=== PATIENT | female | born 1940 | race Caucasian/White ===

== ENCOUNTER 2017-01-23 15:21 | Observation (INO) | payer MEDICARE, OTHER ==
[~2017-01-23] VITALS: Ht 165.1 cm; Wt 78.0 kg
[2017-01-23] VITALS (7 sets, daily range): BP systolic 156–198; BP diastolic 92–109; PULSE 71–91; RESP 12–20; O2SAT 95–98
[~2017-01-23 15:21] MED LIST: HYDR25TA4 PO; NO ACTIVE MEDS
--- NOTE | 2017-01-23 16:34 | ED.REPORT ---
HPI-Neurologic Deficit Date of Service Jan 23, 2017 ED Provider: Aracely Maradiaga MD A 76 year old female with a medical history including Takotsubo cardiomyopathy, hypertension, asthma, and retinal thrombosis presents to the ED with expressive aphasia described as "difficulty word-finding" onset 1200 this afternoon. Associated symptoms include malaise, dizziness, and headache. The patient also experienced an episode of epistaxis upon awakening this morning, which has since resolved. She denies weakness, numbness, vision change, problem walking, shortness of breath, cough, loss of appetite, or other symptoms. The patient's last known normal is 1100 this morning while headed to work. She received distressing news about a close friend today, after the onset of her symptoms. Her symptoms have mostly resolved in the ED. Nursing Notes Stated Complaint: DIZZY, MEMORY PROBLEMS Chief Complaint: Neuro Symptoms/ Deficits Nursing Notes Reviewed: Yes Allergies: Coded Allergies: Shellfish (Verified Allergy, Severe, Anaphylaxis, 01/23/17) esomeprazole (Verified Allergy, Severe, 01/23/17) latex (Verified Allergy, Severe, Hives, 01/23/17) omeprazole (Verified Allergy, Severe, 01/23/17) pantoprazole (Verified Allergy, Severe, HIVES, 01/23/17) CONSTANCE Inhibitors (Verified Allergy, Unknown, 01/23/17) Penicillins (Verified Allergy, Unknown, 01/23/17) Tetracyclines (Verified Allergy, Unknown, 01/23/17) amoxicillin (Verified Allergy, Unknown, 01/23/17) ciprofloxacin (Verified Allergy, Unknown, 01/23/17) ranitidine (Verified Allergy, Unknown, 01/23/17) Quinolones (Verified Adverse Reaction, Unknown, 01/23/17) iodine (Verified Adverse Reaction, Unknown, 01/23/17) Uncoded Allergies: CEPHALOSPORIN (Adverse Reaction, Unknown, UNK - RECEIVED CEFTRIAXONE IN ED , 09/08/09) Scheduled Hydrochlorothiazide (Hydrochlorothiazide) 25 Mg Tablet 25 MG PO DAILY General Time Seen by Provider: 16:34 Chief Complaint Other (Expressive aphasia) Hx Obtained From: Patient Arrived By: Walk-in Sudden in Onset?: Yes Onset Occurred: 5 - 8 hours ago Symptom Duration: 5 - 8 hours Progression Since Onset: Gradually improving Location: : Head Quality: Painful Severity: Current: Moderate Severity: Maximum: Moderate Associated with: Reports: Headache, Denies: Fever, Visual disturbance, Weakness Related History: Reports: Hypertension Immunizations: Unknown Recent Healthcare: No recent doctor visit Risk Factors NIH Stroke Scale Level of Consciousness: Alert and responsive (0) Ask Month & Age: Both questions right (0) Horizontal EO Movements: None (0) Facial Palsy: Normal symmetry (0) Right Arm Motor Drift (10s): No drift 10 sec (0) Left Arm Motor Drift (10s): No drift 10 sec (0) Right Leg Motor Drift (5s): No drift 5 sec (0) Left Leg Motor Drift (5s): No drift 5 sec (0) Limb Ataxia FNF/Heel-Malcolm: No ataxia (0) Sensation (Arms/Legs/Face): No sensory loss (0) Language Aphasia: No aphasia, normal (0) Dysarthria: No dysarthria, normal (0) Extinction/Inattention: No exctinct/inattent (0) NIHSS Score: 0 Time NIHSS Performed: 16:48 Date NIHSS Performed: Jan 23, 2017 Past Medical History Past Medical History Gastritis H. Pylori Staph infection in foot in 2000 Retinal Thrombosis Takotsubo cardiomyopathy (2016) Reports: Asthma, Hypertension Past Surgical History Right knee tendon repair Family History Heart attack in brother Smoking History Never Smoker Social History Alcohol Use: 1-3 per week Drug Use: Denies drug use Other Social History: Good social support, Local resident Ambulatory Status Independent Review of Systems Review of Systems Note: + Expressive aphasia - Loss of appetite Constitutional: Reports: Malaise, Denies: Fever Respiratory: Denies: Non-productive cough, Shortness of breath GI: Denies: Diarrhea, Vomiting Neurologic: Reports: Dizziness, Headache, Denies: Numbness, Problem walking, Vision change, Weakness Complete sys rev & neg: except as marked. Ears / Nose / Throat: Reports: Nose bleeding Physical Exam Initial Vital Signs Vital Signs (First) Date Time Temp Pulse Resp B/P Pulse Ox O2 Delivery O2 Flow Rate FiO2 01/23/17 15:31 36.2 91 16 174/107 97 Room Air Initial VS: Reviewed, Vital signs abnormal ENT: Conjunctiva normal, No scleral icterus Neck: Supple, Full range of motion Skin: Warm, Dry, No cyanosis Psychiatric: Mood/affect normal, Behavior normal, Normal thought content General/Constitutional: Awake, Alert, No acute distress Head / Eyes: Atraumatic, Normocephalic, PERRL, EOMI, No nystagmus Respiratory / Chest: Breath sounds NL, Breath sounds = bilat, No respiratory distress Cardiovascular: Heart rate NL, Regular rhythm, Heart sounds NL, No murmurs, No rubs Neurologic: Oriented X3, Speech NL, No motor deficits, No sensory deficits Interpretation & Diagnostics URINE DRUG SCREEN: Negative URINE DIPSTICK: 1.010 sp gravity 7 pH Trace Leukocyte Esterase Normal Glucose Normal Urobilinogen Otherwise Negative Lab Results Interpretation Result Diagram: 01/23/17 1656 01/23/17 1656 Test 01/23/17 16:56 01/23/17 17:20 White Blood Count 9.0th/mm3 (3.8-10.1) Red Blood Count 5.19mil/mm3 (3.90-5.20) Hemoglobin 15.2g/dL (12.0-15.6) Hematocrit 45.3% (35.0-46.0) Mean Corpuscular Volume 87.3fL (81-100) Mean Corpuscular Hemoglobin 29.3pg (27.0-35.0) Mean Corpuscular Hemoglobin Concent 33.6% (32.0-37.0) Red Cell Distribution Width 13.8% (12.3-15.4) Platelet Count 236bil/L (150-400) Neutrophils (%) (Auto) 70.7% (40-74) Lymphocytes (%) (Auto) 22.2% (14-46) Monocytes (%) (Auto) 5.4% (4-12) Eosinophils (%) (Auto) 1.2% (0-5) Basophils (%) (Auto) 0.4% (0-3) Sodium Level 140mEq/L (134-144) Potassium Level 3.3mEq/L (3.5-5.2) Chloride Level 100mEq/L (97-108) Carbon Dioxide Level 25mmol/L (18-29) Blood Urea Nitrogen 11mg/dL (8-27) Creatinine 0.47mg/dL (0.57-1.00) Estimat Glomerular Filtration Rate 186mL/min (>59) Glucose Level 94mg/dL (60-99) Calcium Level 10.2mg/dL (8.5-10.1) Total Bilirubin 0.6mg/dL (0.0-1.2) Aspartate Amino Transf (AST/SGOT) 25U/L (0-50) Alanine Aminotransferase (ALT/SGPT) 27U/L (0-32) Alkaline Phosphatase 57U/L (25-165) Total Protein 7.2g/dL (6.4-8.4) Albumin 4.5g/dL (3.4-5.0) Urine Color Yellow (YELLOW) Urine Appearance Hazy (CLEAR,HAZY) Urine pH 6.0 (5.0-8.0) Urine Specific [place] 1.010 (1.003-1.035) Urine Protein Negativemg/dL (NEG,TRACE) Urine Glucose (UA) Negativemg/dL (NEGATIVE) Urine Ketones Negativemg/dL (NEGATIVE) Urine Occult Blood Trace (NEGATIVE) Urine Nitrite Negative (NEGATIVE) Urine Bilirubin Negative (NEGATIVE) Urine Urobilinogen Normalmg/dL (NORMAL) Urine Leukocyte Esterase Small (NEGATIVE) Urine RBC 0-2/hpf (0-2) Urine WBC 6-10/hpf (0-5) Urine Epithelial Cells Occasional/hpf (NONE-MOD) Urine Crystals None seen (NONE SEEN) Urine Bacteria Few/hpf (NONE-FEW) Urine Hyaline Casts None/lpf (NONE) Urine Granular Casts None seen (NONE SEEN) Urine Waxy Casts None seen (NONE SEEN) Urine Red Blood Cell Casts None seen (NONE SEEN) Urine White Blood Cell Casts None seen (NONE SEEN) Urine Mucus None seen (None Seen) Urine Trichomonas None seen (NONE SEEN) Urine Yeast None (NONE SEEN) Urinalysis Comment None Urine Culture Reflexed Indicated ECG Interpretation ECG Interpretation: Sinus rhythm rate 83 Normal intervals Normal axis No acute ST or T-wave changes Time: 16:42 Interpreted by: ED physician CT Head Interpretation IMPRESSION: 1. No acute intracranial process. 2. Moderate atrophy and chronic microvascular ischemic changes. Dictated by: Sarah Butcher M.D. on 01/23/2017 at 17:16 Study: Head CT no contrast Interpretation / Wet Read by: Interpret - Radiologist Re-Eval/Medical Decision Med Decision/Clinical Course The patient presents with neurologic symptoms which are resolved. They seem consistent with a TIA especially given the patient's persistent hypertension. Other considerations were electrolyte abnormality and dysrhythmia. Source of Hx: Old records Re-Evaluation/Progress #1: Time of Eval: 16:55 Patient Status: Condition improved Re-Evaluation/Progress Note: Patient rechecked. Allergies discussed. Re-Evaluation/Progress #2: Time of Eval: 18:37 )( Re-Eval Neurologic Exam: Alert Patient Status: Condition improved Re-Evaluation/Progress Note: Patient began to feel lightheaded after medication was administered, but her other symptoms have resolved at this time. Discussed with patient labs and CT results, diagnosis, and plan for admit. Patient agrees with plan for care and all questions were addressed. 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 I, Dr. Maradiaga, personally performed the history, physical exam, and medical decision-making; I reviewed and confirmed the accuracy of the information in the transcribed note. Signed by: Margaret Izquierdo, 01/23/2017, 21:30 copies to: Thao Aldridge MD, Jena M MD Jan 23, 2017 16:34 ISABEL ELDER Jan 23, 2017 16:46
[2017-01-23] MEDS ORDERED: Labetalol 5 mg/mL 4 mL Inj IVPUSH ONE (16:50)
[2017-01-23] MEDS ORDERED: hydrALAZINE 20 mg/mL Inj IV ONE (17:00)
[2017-01-23 17:05] LABS: BASOPHILS % (AUTO) 0.4 % (0-3); EOSINOPHILS % (AUTO) 1.2 % (0-5); MONOCYTES % (AUTO) 5.4 % (4-12); Mean Corpuscular Hemoglobin 29.3 pg (27.0-35.0); Mean Corpuscular Volume 87.3 fL (81-100); NEUTROPHILS % (AUTO) 70.7 % (40-74); Platelet Count 236 bil/L (150-400)
--- NOTE | 2017-01-23 17:19 | DRSVH ---
PROCEDURE: CT BRAIN WITHOUT CONTRAST ([id number]) INDICATIONS: neuro sx TECHNIQUE: Noncontrast 4.5 mm thick angled axial sections acquired from the foramen magnum to the vertex, with c oronal reformats. COMPARISON: [facility], CT, BRAIN W/O CONTRAST, 11/19/2009, 12:36. FINDINGS: Image quality: Excellent. CSF spaces: Basal cisterns are patent. No extra-axial fluid collections. The ventricles are symmet butch in size and shape. Brain: No intracranial bleeds or masses. There is cerebral volume loss for age, with resultant vent ricular and sulcal prominence. There are periventricular and deep white matter chronic small vessel ischemic changes. There is intracranial internal carotid artery atherosclerosis. Skull and face: Calvarium and visualized facial bones appear intact, without suspicious lesions. Sinuses: Visualized sinuses demonstrate hastings sinus minimal to mild mucosal thickening. IMPRESSION: 1. No acute intracranial process. 2. Moderate atrophy and chronic microvascular ischemic changes. Dictated by: Sarah Butcher M.D. on 01/23/2017 at 17:16 Approved by: Sarah Butcher M.D. on 01/23/2017 at 17:17
[2017-01-23 17:35] LABS: APPEARANCE,URINE HAZY (CLEAR,HAZY); COLOR,URINE YELLOW (YELLOW); OCCULT BLOOD,URINE TRACE (NEGATIVE); UROBILINOGEN,URINE NORMAL (NORMAL)
[2017-01-23] MEDS ORDERED: Potassium Chloride 20 mEq SR Tablet PO ONE (18:05)
[2017-01-23] MEDS ORDERED: HYDR25TA4 PO (19:37)
[2017-01-23] MEDS ORDERED: Polyethylene Glycol (PEG) 17 Gm Powder PO PRN (19:40)
[2017-01-23] MEDS ORDERED: Alum-Mag Hydrox-Simeth 30 mL Suspension PO PRN (19:40)
[2017-01-23] MEDS ORDERED: Ondansetron 2 mg/mL 2 mL Inj IV PRN (19:40)
--- NOTE | 2017-01-23 23:09 | PCM.HPMED ---
Subjective Date of Service Jan 23, 2017 Primary Provider: Admitting Physician: Marcella Stevens DO Primary Care Physician: Thao Aldridge MD Attending Physician: Marcella Stevens DO Admit Status: From the Emergency Department Chief Complaint: Expressive aphasia, dizziness History of Present Illness: 76-year-old female with past medical history including hypertension, Takotsubo cardiomyopathy, retinal thrombosis, and asthma presented to the emergency department with difficulty finding words at work on the day of admission followed by lightheadedness, and generally feeling unwell. She arrived to work at 11 AM after dropping her grandson off at school. 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 She was aware that she was doing it. She received news that the daughter if someone close to her had due to alcohol abuse overnight. She was thinking her symptoms might be related to this however her lightheadedness persisted and she felt like her blood pressure may be elevated. She reports feeling a little headachy during the time of exam however this was not a prominent symptom earlier in the day. She has been having some visual changes and is being treated for retinal thrombosis with Avastin intravitreal eye injections every 8 weeks. She was seen recently and there was concern for bleeding since her last injection and they are planning to increase the frequency of her injections. She has had no chest pain or shortness of breath, nausea, vomiting, constipation, or diarrhea. She does report a sore left ankle with occasional swelling around the joint that is chronic. Patient has her adult daughter and 8-year-old grandson living with her. As much as she enjoys spending time with her grandson she finds this situation stressful and has asked for them to find a new place to live over a year ago In the emergency department symptoms had mostly resolved, and age stroke scale 0 , potassium 3.3 with oral replacement of 20 mEq. EKG unremarkable, CT head showed no acute intracranial process. Review of Systems: A comprehensive review of systems was conducted with the patient and found to be negative except as above in the History of Present Illness. Allergies Coded Allergies: Shellfish (Verified Allergy, Severe, Anaphylaxis, 01/23/17) esomeprazole (Verified Allergy, Severe, 01/23/17) latex (Verified Allergy, Severe, Hives, 01/23/17) omeprazole (Verified Allergy, Severe, 01/23/17) pantoprazole (Verified Allergy, Severe, HIVES, 01/23/17) CONSTANCE Inhibitors (Verified Allergy, Unknown, 01/23/17) Penicillins (Verified Allergy, Unknown, 01/23/17) Tetracyclines (Verified Allergy, Unknown, 01/23/17) amoxicillin (Verified Allergy, Unknown, 01/23/17) ciprofloxacin (Verified Allergy, Unknown, 01/23/17) ranitidine (Verified Allergy, Unknown, 01/23/17) Quinolones (Verified Adverse Reaction, Unknown, 01/23/17) iodine (Verified Adverse Reaction, Unknown, 01/23/17) Uncoded Allergies: CEPHALOSPORIN (Adverse Reaction, Unknown, UNK - RECEIVED CEFTRIAXONE IN ED , 09/08/09) Home Medications Hydrochlorothiazide 25 mg by mouth daily PMH Takotsubo cardiomyopathy 2016 Hypertension Retinal vein thrombosis Asthma Gastritis H. pylori infection with esophageal ulcer perforation Staph infection in the foot in 2000 Surgical History EGD with cauterization of perforated ulcer by Dr. 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 External ears without defect. Pupils equal, round, and reactive to light and accommodation. Anicteric sclerae, moist conjunctivae, and no lid lag. Oropharynx free of erythema and cobble stoning with moist mucosa. Neck: Supple with full range of motion. No jugular venous distension. No bruits. No lymphadenopathy or thyromegaly. Cardiovascular: Regular rate and rhythm with no murmurs, rubs, or gallops appreciated Pulmonary: Left lower lobe deep wheezes, otherwise clear to auscultation bilaterally with no crackles, wheezes, or rhonchi. Normal respiratory effort with no use of accessory muscles. Abdomen: Bowel tones present. Soft, nontender, nondistended. No hepatosplenomegaly or masses appreciated. Extremities: No clubbing, cyanosis, edema, or lymphadenopathy appreciated. Skin: Normal temperature, turgor, and texture; no rash, ulcers, or subcutaneous nodules appreciated. Neurological: Cranial nerves grossly intact. Normal muscle strength, tone, and bulk. No known gait impairment. Psychiatric: Normal mood and affect. Alert and oriented to person, place, and time. Lab and Diagnostics Result Diagram: 01/23/176 01/23/171655 X-Rays, CTs and MRIs PROCEDURE: CT BRAIN WITHOUT CONTRAST ([id number]) IMPRESSION: 1. No acute intracranial process. 2. Moderate atrophy and chronic microvascular ischemic changes. Dictated by: Sarah Butcher M.D. on 01/23/2017 at 17:16 12-lead ECG ECG Interpretation: Sinus rhythm rate 83 Normal intervals Normal axis No acute ST or T-wave changes Time: 16:42 Interpreted by: ED physician Assessment & Plan 76-year-old female with past medical history including hypertension, Takotsubo cardiomyopathy, retinal thrombosis, and asthma presented to the emergency department with difficulty finding words at work on the day of admission followed by lightheadedness, and generally feeling unwell. 1. Probable transient ischemic attack, present on admission, acute - Patient had expressive aphasia accompanied with dizziness and lightheadedness , last known normal 11 AM 01/23/2017 - ABCD2 score predicts moderate risk of stroke 4.1 % 2 day stroke risk and 9.8% 90 day stroke risk - CT head shows no acute intracranial process - Nothing by mouth until swallow eval complete, Swallowing evaluation ordered - Echocardiogram ordered - Hemoglobin A1c, fasting lipid profile ordered - Medical management with aspirin, atorvastatin - MR stroke protocol ordered for the morning - Nursing stroke education - Monitor patient on telemetry 2. Hypertension, present on admission, acute on chronic - Blood pressure measured to be as high as 192/101 - Treated with IV hydralazine 10 mg in the emergency department. - Patient takes 25 mg hydrochlorothiazide by mouth daily. - Patient reports fatigue and her blood pressure at work over the last 2 days with readings 152/84 and 141/74. - She will likely need additional hypertensive therapy however I will defer to day team for this as we will wait to initiate antihypertensive therapy until after her vascular imaging is complete to allow for permissive htn. 3. Hypokalemia, present on admission, active - Potassium repleted with 20 mEq oral potassium chloride - Recheck BMP in the morning 4. Stressful social situation, present on admission, chronic - Patient's daughter and 8-year-old grandson have been living with her for the last 8 years. Though she greatly enjoys spending time with her grandson and helping her daughter it has become stressful. - Patient has asked daughter to find a new living situation multiple times to no avail. Description of the situation kept coming up during our discussion. - Recommend outpatient follow-up with possible referral to counseling as patient may be experiencing some internal conflict over this situation. Acetaminophen for mild pain when necessary. Bowel regimen Senna and MiraLAX PRN. Zofran when necessary for nausea and vomiting. DVT prophylaxis with sub cutaneous heparin Patient was admitted under inpatient status with expected length of stay greater than 2 midnights due to severity of presenting symptoms, risk of adverse event, and complexity of treatment plan. Pain Evaluation: Adequate Pain Control GI Prophylaxis: Not indicated VTE Prophylaxis: Sub-Q Heparin (Unfractionated) VTE Mechanical Devices: Intermittant Pneumatic CD Resuscitation Status: CPR: Attempt Resuscitation Attending Statement //The patient was seen and examined together with house staff on 01/23/2017 and I agree with the history, exam and plan as outlined in the note above. copies to: Thao Aldridge MD, Erika R DO Jan 23, 2017 23:09 Marcella Stevens DO Jan 24, 2017 05:51
[2017-01-24 05:04] VITALS: BP 128/74; PULSE 65; RESP 18; O2SAT 95
--- NOTE | 2017-01-24 05:41 | NUR ---
Admit/Neurochecks Admitted pt from ED, suspected of possible TIA. Neuro vitals done. Pt is AOx4, noted no word searching or slurring of speech. PERRLA, and no altered gaze. 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 Low extremities strength for age. Swallow screen done, currently on pureed honey thick until speech evaluates. CVA booklet given for health teaching. Denies chest pain, sob, n/v or abd discomfort. HTN noted upon arrival, MD is aware and no intervention at the moment. Hourly rounding done, telemetry noted no abnormal rhythm throughout the shift. Will continue to monitor.
[2017-01-24 05:46] VITALS: PULSE 62
[2017-01-24 06:09] LABS: BASOPHILS % (AUTO) 0.7 % (0-3); EOSINOPHILS % (AUTO) 3.2 % (0-5); MONOCYTES % (AUTO) 8.4 % (4-12); Mean Corpuscular Hemoglobin 29.3 pg (27.0-35.0); Mean Corpuscular Volume 88.4 fL (81-100); NEUTROPHILS % (AUTO) 55.8 % (40-74); Platelet Count 233 bil/L (150-400)
[2017-01-24] MEDS: Heparin 5,000 Unit/mL Inj SUBQ SCH ×2 (08:11→16:07)
[2017-01-24 08:44] VITALS: BP 153/98; PULSE 69; RESP 20; O2SAT 96
[2017-01-24 10:36] VITALS: PULSE 65
--- NOTE | 2017-01-24 11:14 | NUR ---
Evaluation completed. Please go to "Notes" then click on "Assessments and Notes" (bottom left corner of screen). Then select appropriate discipline tab on top of screen.
--- NOTE | 2017-01-24 11:46 | DRSVH ---
[facility] [address] [place] [address] Echocardiogram Report Name: JADEN AGUAYO JStudy Date: 01/24/2017 Height: 65 in Hospital Exam Location: [facility] Weight: 172 lb Gender: Female BSA: 1.9 m2 : 1940 Age: 76 yrs BP: 128/74 mmHg Reason For Study: TIA Ordering Physician: HOSPITALIST [facility] Performed By: Delvin Castillo Referring Physician: Thao Aldridge Interpretation Summary The left ventricle is normal in size. The ejection fraction is estimated to be 60-65%. There has been no significant change in LV EF since the previous study. The right ventricle is borderline dilated. The right ventricular systolic function is normal. There is mild tricuspid valve prolapse. There is mild tricuspid regurgitation. Compared to the prior echo exam, there has been a decrease in TR severity. The right ventricular systolic pressure is estimated at 20 mmHg assuming a right atrial pressure of 3 mm Hg. Procedure: A two-dimensional transthoracic echocardiogram with color flow and Doppler was performed. The study quality was technically adequate. Comparison is made with the echocardiogram of 01/13/16. The patient was in normal sinus rhythm during the exam. Left Ventricle: The left ventricle is normal in size. There is normal left ventricular wall thickness. There is no thrombus. The ejection fraction is estimated to be 60-65%. There has been no significant change since the previous study. There are no focal wall motion abnormalities. Spectral Doppler of the mitral valve is reversed, with an E/A wave ratio < 1.0. Right Ventricle: The right ventricle is borderline dilated. The right ventricular systolic function is normal. Atria: Both atria are normal in size. Both atria have remained unchanged in size since the prior echo exam. A prominent eustachian valve is noted. The interatrial septum is intact with no evidence for an atrial septal defect. Mitral Valve: The mitral valve leaflets appear thickened, but open well. There is trace mitral regurgitation. Aortic Valve: The aortic valve is trileaflet. The aortic valve opens well. The aortic valve is slightly calcified. No aortic regurgitation is present. Tricuspid Valve: There is mild tricuspid valve prolapse. There is mild tricuspid regurgitation. The right ventricular systolic pressure is estimated at 20 mmHg assuming a right atrial pressure of 3 mm Hg. Compared to the prior echo exam, there has been a decrease in TR severity. Pulmonic Valve: The pulmonic valve is not well seen, but is grossly normal. There is no pulmonic valvular regurgitation. Great Vessels: The aortic root is normal size. The ascending aorta is mildly enlarged. The pulmonary artery is normal size. The IVC is of normal diameter and collapses greater than 50% with a sniff. This suggests a low right atrial pressure of 3 mm Hg. Pericardium/ Pleura There is no pericardial effusion. There is no pleural effusion. MMode/2D Measurements & Calculations LVIDd: 4.7 cm RA long axis LVOT diam LVIDs: 2.9 cm LA A2 area: 13.3 cm FS: 36.8 % LA A4 area: 12.6 cm RA area Ao root diam EPSS: 0.60 cm LA length (vol): 5.0 cm IVSd: 0.88 cm LA vol: 28.6 ml : 12.2 cm asc Aorta LVPWd: 0.72 cm LA vol index RA vol: 27.8 mlDiam: 3.5 cm RA : 15.0 mm2 IVC diam: 1.0 cm LV florence. diameter/BSA LV sys. diameter/BSA (cm/m^2): 2.5 (cm/m^2): 1.6 Doppler Measurements & Calculations Ao V2 max MV E max tony MV E/A: 0.52 TR max tony: 203.2 cm/sec : 128.8 cm/sec : 47.8 cm/sec Med Peak E' Tony TR max P.5 mmHg Ao max PG MV A max tony PA V2 max: 72.2 cm/sec : 6.6 mmHg : 91.5 cm/sec E/E' med: 13.8 PA mean P.3 mmHg Ao mean PG Lat Peak E' Tony PA Accel Time: 0.14 sec : 4.2 mmHg E/E' lat: 7.3 E/e' average Pulm A Revs Dur MV A dur: 0.16 sec MV dec time Ao V2 mean PA V2 mean Pulm A Revs Dur - MV A : 0.33 sec : 99.3 cm/sec : 55.3 cm/sec Dur: -0.04 msec Ao V2 VTI PA pr(Accel) : 29.2 cm : 9.1 mmHg Reading Physician:LAURA
--- NOTE | 2017-01-24 11:59 | NUR ---
MRI/off floor pt is transported via W/C to MRI.
--- NOTE | 2017-01-24 13:00 | NUR ---
back on floor pt returns from MRI via W/C. denies pain/distress. Tele hooked back up and surgical scrub tech called.
[2017-01-24 13:34] VITALS: BP 148/78; PULSE 70; RESP 19; O2SAT 95
--- NOTE | 2017-01-24 14:26 | DRSVH ---
PROCEDURE: MRI STROKE PROTOCOL ([id number]) Pre- and post-contrast brain MRI, non-contrast brain MR angiogram, pre- and postcontrast neck MR marilu ogram INDICATIONS: Expressive aphasia TECHNIQUE: Brain: Noncontrast axial T1 spin echo, axial T2 fast spin echo, sagittal and axial FLAIR, coronal T2 fast spin echo, axial gradient echo, axial diffusion and ADC through the brain. After the administr ation of contrast, axial 3D VIBE of the cranial vasculature and brain. Brain MRA: Non-contrast 3-D time of flight MR angiogram, with multiple gijaijh-pzrrpiedi-bnvhxcxjvt (MIP) reformats performed. Neck MRA: Axial and sagittal TruFISP through the neck. Coronal dynamic MR angiogram during administ ration of contrast in the arterial and venous phases, with 3-dimenstional zwvmtop-rzrtffbxn-evdgzokif n (MIP) reformats constructed from subtraction images. COMPARISON: [facility], MR, STROKE PROTOCOL ([facility] 11/19/2009, 16:45. FINDINGS: Image quality: Excellent. BRAIN: CSF spaces: Ventricles are normal in size and shape. Basal cisterns are patent. No extra-axial flu id collections. Brain: No intracranial bleeds or mass effects. Almanzar-white matter interface is normal. Diffusion we ighted images show no acute ischemic insults. Brainstem appears normal. Normal intravascular flow v oids are present. No abnormal intracranial enhancement. Skull and face: Calvarial marrow signal is normal. Orbits appear normal. Sinuses: Sinuses demonstrate minimal hastings sinus mucosal thickening. Fluid is present in the right ma stoid air cells. Recommend correlation to mastoiditis. BRAIN MR ANGIOGRAM: Anterior circulation: Intracranial internal carotid arteries are normal in size and enhancement. Th e flow within the paired anterior cerebral arteries is normal and symmetric. The flow within the mid dle cerebral arteries is normal and symmetric. The anterior communicating artery is seen. No stenos es, occlusions, or aneurysms. Posterior circulation: The visualized portions of the vertebral arteries demonstrate normal caliber, and join to form a normal appearing basilar artery. The flow within the posterior cerebral arteries is normal and symmetric. No stenoses, occlusions, or aneurysms. NECK MR ANGIOGRAM: Carotids: Great vessels demonstrate a conventional anatomy as they arise from the aortic arch. The origins of the common carotid arteries appear patent. The calibers and courses of both common caroti d arteries are normal. The bifurcation regions appear normal bilaterally. The left internal carotid artery demonstrates normal course and caliber. There is an approximate 50% narrowing at the origin of the right internal carotid artery. Posterior circulation: The origins of the vertebral arteries appear patent. More superior portions of both vertebral arteries demonstrate normal course and caliber, and join to form a normal appearing basilar artery. Miscellaneous: Subclavian arteries appear patent. Pre-contrast images through the neck show no soft tissue abnormalities. IMPRESSION: 1. No acute intracranial process. No acute ischemia. 2. Moderate atrophy and chronic microvascular changes. 3. There are no areas of hemodynamically significant stenosis, occlusion or aneurysmal dilation of t he anterior circulation. 4. There are no areas of hemodynamically significant stenosis, occlusion or aneurysmal dilation of t he posterior circulation. 5. Approximate 50% stenosis of the right internal carotid artery. The estimate of stenosis included in the report of the imaging study was calculated using the NASCET method Dictated by: Sarah Butcher M.D. on 01/24/2017 at 14:09 Approved by: Sarah Butcher M.D. on 01/24/2017 at 14:25
--- NOTE | 2017-01-24 15:32 | PCM.DIMED ---
Discharge Instructions Date of Service Jan 24, 2017 Dates of Hospitalization Jan 23, 2017 at 19:45 Discharge Diagnosis Discharge Diagnosis 1. Likely Stress reaction vs less likely transient ischemic attack, 2. Hypertension 3. Hypokalemia - resolved 4. Social Stressors Medication Instructions Please continue taking your medications as previously instructed Diet Heart Healthy Call your provider Fever or Chills, Chest pain, Weakness (unilateral) Patient Instructions Please follow up with Dr. Aldridge within 1 week. Please discuss with her about your stress level and about any need for baby aspirin usage. Follow-up Provider: Thao Aldridge MD Follow-up with PCP in: 1 week Micah Gastelum DO Jan 24, 2017 15:32
--- NOTE | 2017-01-24 15:49 | NUR ---
Social Work-initial assessment/discharge: Data:See initial assessment. Pt is a 76 y/o female who was admitted on 01/23/17 for TIA per H&P. Pt's insurance is [employer] and PCP is hTao Aldridge MD. EMR Reviewed. Pt's readmission score is 3-high risk. SW met with pt to discuss discharge planning, SW role explained. Pt is alert and oriented x3. Pt resides at home with her daughter and grandson in a multi level home where she remains independent with ADls. Pt drives and does not use any DME. Pt has no HH or SNF history. Pt has no assistant terminal manager care or VA benefits. 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 SW discussed DPOA/ advanced directive, pt states she has never done this paperwork, SW provided her with a copy. PT and ST have both seen pt and cleared pt for home no needs. Pt is ready to discharge home today. Pt confirms her daughter will provide transport home. SW provided phone number and plan on white board in room. No anticipated discharge needs. All updated and agreeable to plan. Assessment:Pt who is independent at baseline. Plan:Pt to discharge home today via POV. No anticipated discharge needs. All updated and agreeable to plan. MADHURI Quintana Addendum: 01/24/17 at 1554 by RAAD GLEZ Amended: Links added.
--- NOTE | 2017-01-24 16:32 | NUR ---
discharge paperwork reviewed, no questions at this time. Belongings are bagged and pt carried them out. pt refused W/C ride and prefers to walk to private car to return to her private home.
--- NOTE | 2017-01-24 17:13 | PCM.DC.MED ---
Discharge Summary Date of Service Jan 24, 2017 Dates of Hospitalization Date of Hospital Admission Jan 23, 2017 at 19:45 Date of Discharge: Jan 24, 2017 Providers: Admitting Physician: Marcella Stevens DO Primary Care Physician: Thao Aldridge MD Attending Physician: Marcella Stevens DO Diagnosis at Time of Discharge Diagnosis at Time of Discharge 1. Likely Stress reaction vs possible transient ischemic attack, 2. Hypertension 3. Hypokalemia - resolved 4. Social Stressors Procedures XRay, CTs & MRIs PROCEDURE: CT BRAIN WITHOUT CONTRAST ([id number]) IMPRESSION: 1. No acute intracranial process. 2. Moderate atrophy and chronic microvascular ischemic changes. Dictated by: Sarah Butcher M.D. on 01/23/2017 at 17:16 ECG 12 Lead ECG Interpretation: Sinus rhythm rate 83 Normal intervals Normal axis No acute ST or T-wave changes Time: 16:42 Interpreted by: ED physician Cardiac Echo Impression Interpretation Summary The left ventricle is normal in size. The ejection fraction is estimated to be 60-65%. There has been no significant change in LV EF since the previous study. The right ventricle is borderline dilated. The right ventricular systolic function is normal. There is mild tricuspid valve prolapse. There is mild tricuspid regurgitation. Compared to the prior echo exam, there has been a decrease in TR severity. The right ventricular systolic pressure is estimated at 20 mmHg assuming a right atrial pressure of 3 mm Hg. Brief History 76-year-old female with past medical history including hypertension, Takotsubo cardiomyopathy, retinal thrombosis, and asthma presented to the emergency department with difficulty finding words at work on the day of admission followed by lightheadedness, and generally feeling unwell. She arrived to work at 11 AM after dropping her grandson off at school. 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 She was aware that she was doing it. She received news that the daughter if someone close to her had due to alcohol abuse overnight. She was thinking her symptoms might be related to this however her lightheadedness persisted and she felt like her blood pressure may be elevated. She reports feeling a little headachy during the time of exam however this was not a prominent symptom earlier in the day. She has been having some visual changes and is being treated for retinal thrombosis with Avastin intravitreal eye injections every 8 weeks. She was seen recently and there was concern for bleeding since her last injection and they are planning to increase the frequency of her injections. She has had no chest pain or shortness of breath, nausea, vomiting, constipation, or diarrhea. She does report a sore left ankle with occasional swelling around the joint that is chronic. Patient has her adult daughter and 8-year-old grandson living with her. As much as she enjoys spending time with her grandson she finds this situation stressful and has asked for them to find a new place to live over a year ago In the emergency department symptoms had mostly resolved, and age stroke scale 0 , potassium 3.3 with oral replacement of 20 mEq. EKG unremarkable, CT head showed no acute intracranial process. Hospital Course 76-year-old female with past medical history including hypertension, Takotsubo cardiomyopathy, retinal thrombosis, and asthma presented to the emergency department with difficulty finding words at work on the day of admission followed by lightheadedness, and generally feeling unwell. Patient was admitted for possible TIA. She had a negative Brain CT, reassuring MR stroke protocol, and reassuring Echocardiogram. Upon review, patient did have a very stressful day at home and at work, she also skipped meals and felt fairly lightheaded as a result. She also received some bad news from a relative and this may have cause her to have a stress reaction. Her symptoms did resolve quickly and she has been stable throughout the admission, so she was discharged in good condition. She may still possibly have had a TIA, but she did have a history of UGIB, so will defer aspirin initiation to PCP. 1. Probable transient ischemic attack, present on admission, acute - Patient had expressive aphasia accompanied with dizziness and lightheadedness , last known normal 11 AM 01/23/2017 - ABCD2 score predicts moderate risk of stroke 4.1 % 2 day stroke risk and 9.8% 90 day stroke risk - CT head shows no acute intracranial process - Echocardiogram resulted as above - Hemoglobin A1c 5.7 - fasting lipid profile- all WNL - MR stroke protocol performed - Nursing stroke education 2. Hypertension, present on admission, acute on chronic - Blood pressure measured to be as high as 192/101 - Treated with IV hydralazine 10 mg in the emergency department for presumably too high of a BP - Patient takes 25 mg hydrochlorothiazide by mouth daily. - Patient reports fatigue and her blood pressure at work over the last 2 days with readings 152/84 and 141/74. 3. Hypokalemia, present on admission, active - Potassium repleted with 20 mEq oral potassium chloride - Resolved 4. Stressful social situation, present on admission, chronic - Patient's daughter and 8-year-old grandson have been living with her for the last 8 years. Though she greatly enjoys spending time with her grandson and helping her daughter it has become stressful. - Patient has asked daughter to find a new living situation multiple times to no avail. Description of the situation kept coming up during our discussion. - Recommend outpatient follow-up with possible referral to counseling as patient may be experiencing some internal conflict over this situation. Exam Vital Signs (Last) Date Time Temp Pulse Resp B/P Pulse Ox O2 Delivery O2 Flow Rate FiO2 01/24/17 13:34 36.5 70 19 148/78 95 Room Air Exam General: No acute distress, well-developed, well-nourished, well-groomed, appropriately interactive HEENT: Normocephalic, atraumatic. External ears without defect. Pupils equal, round, and reactive to light and accommodation. Cardiovascular: Regular rate and rhythm with no murmurs, rubs, or gallops appreciated Pulmonary: CTAB Abdomen: Soft, NT Extremities: No clubbing, cyanosis, edema, or lymphadenopathy appreciated. Skin: Warm ,dry Neurological: Cranial nerves grossly intact. Normal muscle strength, tone, and bulk. No gait impairment. Psychiatric: Normal mood and affect. Alert and oriented to person, place, and time. Test 01/23/17 16:56 01/23/17 17:20 01/24/17 05:50 Hemoglobin A1c 5.7% (4.8-5.6) Total Bilirubin 0.6mg/dL (0.0-1.2) Aspartate Amino Transf (AST/SGOT) 25U/L (0-50) Alanine Aminotransferase (ALT/SGPT) 27U/L (0-32) Alkaline Phosphatase 57U/L (25-165) Total Protein 7.2g/dL (6.4-8.4) Albumin 4.5g/dL (3.4-5.0) Urine Color Yellow (YELLOW) Urine Appearance Hazy (CLEAR,HAZY) Urine pH 6.0 (5.0-8.0) Urine Specific Billings 1.010 (1.003-1.035) Urine Protein Negativemg/dL (NEG,TRACE) Urine Glucose (UA) Negativemg/dL (NEGATIVE) Urine Ketones Negativemg/dL (NEGATIVE) Urine Occult Blood Trace (NEGATIVE) Urine Nitrite Negative (NEGATIVE) Urine Bilirubin Negative (NEGATIVE) Urine Urobilinogen Normalmg/dL (NORMAL) Urine Leukocyte Esterase Small (NEGATIVE) Urine RBC 0-2/hpf (0-2) Urine WBC 6-10/hpf (0-5) Urine Epithelial Cells Occasional/hpf (NONE-MOD) Urine Crystals None seen (NONE SEEN) Urine Bacteria Few/hpf (NONE-FEW) Urine Hyaline Casts None/lpf (NONE) Urine Granular Casts None seen (NONE SEEN) Urine Waxy Casts None seen (NONE SEEN) Urine Red Blood Cell Casts None seen (NONE SEEN) Urine White Blood Cell Casts None seen (NONE SEEN) Urine Mucus None seen (None Seen) Urine Trichomonas None seen (NONE SEEN) Urine Yeast None (NONE SEEN) Urinalysis Comment None Urine Culture Reflexed Indicated White Blood Count 5.9th/mm3 (3.8-10.1) Red Blood Count 5.19mil/mm3 (3.90-5.20) Hemoglobin 15.2g/dL (12.0-15.6) Hematocrit 45.9% (35.0-46.0) Mean Corpuscular Volume 88.4fL (81-100) Mean Corpuscular Hemoglobin 29.3pg (27.0-35.0) Mean Corpuscular Hemoglobin Concent 33.1% (32.0-37.0) Red Cell Distribution Width 14.0% (12.3-15.4) Platelet Count 233bil/L (150-400) Neutrophils (%) (Auto) 55.8% (40-74) Lymphocytes (%) (Auto) 31.9% (14-46) Monocytes (%) (Auto) 8.4% (4-12) Eosinophils (%) (Auto) 3.2% (0-5) Basophils (%) (Auto) 0.7% (0-3) Sodium Level 143mEq/L (134-144) Potassium Level 4.2mEq/L (3.5-5.2) Chloride Level 104mEq/L (97-108) Carbon Dioxide Level 26mmol/L (18-29) Blood Urea Nitrogen 9mg/dL (8-27) Creatinine 0.56mg/dL (0.57-1.00) Estimat Glomerular Filtration Rate 152mL/min (>59) Glucose Level 106mg/dL (60-99) Calcium Level 10.7mg/dL (8.5-10.1) Triglycerides Level 120mg/dL (0-149) Cholesterol Level 181mg/dL (100-199) LDL Cholesterol, Calculated 95.000mg/dL (0-99) VLDL Cholesterol 24.000mg/dL HDL Cholesterol 62mg/dL (>39) Cholesterol/HDL Ratio 2.92 (0.0-4.4) Discharge Medications Discharge Medications Hydrochlorothiazide (Hydrochlorothiazide) 25 Mg Tablet 25 MG PO DAILY (Reported ) Additional med instructions Please continue taking your medications as previously instructed Followup Plan Disposition: Home Discharge Diet: Heart Healthy Discharge Activity: No restrictions Patient Instructions Please follow up with Dr. Aldridge within 1 week. Please discuss with her about your stress level and about any need for baby aspirin usage. Follow-up Provider: Thao Aldridge MD Follow-up with PCP in: 1 week Attending Statement The patient was seen and examined together with Resident/House-staff on 01/24/17 and I agree with the history, exam and plan as outlined in the note above. copies to: Thao Aldridge MD, Hong D DO Jan 24, 2017 17:13 Kash Martell Jan 24, 2017 18:12
== END 2017-01-24 16:42 | disposition home or self-care (01) ==
LOC: SED 15:21 → MPC 19:45
PROVIDERS: ADMIT Internal Medicine; ATTEND Internal Medicine
DX: R47.01 Aphasia (principal); R42 Dizziness and giddiness; E87.6 Hypokalemia; G31.9 Degenerative disease of nervous system, unspecified; I10 Essential (primary) hypertension; K29.50 Unspecified chronic gastritis without bleeding; J45.909 Unspecified asthma, uncomplicated; Z63.79 Other stressful life events affecting family and household; Z79.899 Other long term (current) drug therapy
CPT/HCPCS: 36415; 70450; 70549; 70553; 80048; 80053; 80061; 81000; 82948; 83036; 85025; 87086; 87088; 92610; 93005; 96374; 97161; 99285; A9585; C8929; G0378; G8996; G8997; G8998; J0360; J1644

== ENCOUNTER 2017-05-27 23:39 | Emergency (ER) | payer OTHER ==
[~2017-05-27] VITALS: Ht 165.1 cm; Wt 78.2 kg
[~2017-05-27 23:39] MED LIST changes: -NO ACTIVE MEDS
[2017-05-27 23:42] VITALS: BP 151/89; PULSE 75; RESP 12; O2SAT 97
--- NOTE | 2017-05-28 01:44 | ED.REPORT ---
HPI-Neck Pain Free Text HPI Notes May 28, 2017 ED Provider: Akira Kumari MD The pt is a 76 y/o female w/ a hx of HTN and asthma presenting to the ED complaining of neck pain. She reports walking, tripping over a piece of clothing , and plantar flexing her L foot beyond its normal limit 5 days ago. 2 days after the incident she went to urgent care because of the swelling and they took an x-ray of her foot and knee. Three days ago her neck began to feel "weird" and has become increasingly painful ever since. She experiences pain when turning her head to left as well as experiences difficulty holding her head up while watching tv due to the pain. Nursing Notes Stated Complaint: NECK PAIN Chief Complaint: Head, Face, Neck Trauma Nursing Notes Reviewed: Yes Allergies: Coded Allergies: Shellfish (Verified Allergy, Severe, Anaphylaxis, 01/23/17) esomeprazole (Verified Allergy, Severe, 01/23/17) latex (Verified Allergy, Severe, Hives, 01/23/17) omeprazole (Verified Allergy, Severe, 01/23/17) pantoprazole (Verified Allergy, Severe, HIVES, 01/23/17) CONSTANCE Inhibitors (Verified Allergy, Unknown, 01/23/17) Penicillins (Verified Allergy, Unknown, 01/23/17) Tetracyclines (Verified Allergy, Unknown, 01/23/17) amoxicillin (Verified Allergy, Unknown, 01/23/17) ciprofloxacin (Verified Allergy, Unknown, 01/23/17) ranitidine (Verified Allergy, Unknown, 01/23/17) Quinolones (Verified Adverse Reaction, Unknown, 01/23/17) iodine (Verified Adverse Reaction, Unknown, 01/23/17) Uncoded Allergies: CEPHALOSPORIN (Adverse Reaction, Unknown, UNK - RECEIVED CEFTRIAXONE IN ED , 09/08/09) Scheduled Hydrochlorothiazide (Hydrochlorothiazide) 25 Mg Tablet 25 MG PO DAILY General Time Seen by Provider: 01:23 Chief Complaint Neck pain Hx Obtained From: Patient Arrived By: Walk-in Sudden in Onset?: Yes Onset Occurred: 3 days ago Symptom Duration: Since onset Progression Since Onset: Gradually worsening Recent Healthcare: No recent hospitalization, Recent doctor visit Similar Sx Previous: No Past Medical History Past Medical History Gastritis H. Pylori Staph infection in foot in 2000 Retinal Thrombosis Takotsubo cardiomyopathy (2016) Reports: Asthma, Hypertension Past Surgical History Right knee tendon repair Family History Heart attack in brother Smoking History Never Smoker Social History Alcohol Use: 1-3 per week Drug Use: Denies drug use Other Social History: Good social support, Local resident Ambulatory Status Independent Review of Systems Musculoskeletal: Reports: Joint pain (L ankle), Joint swelling (L ankle), Neck pain (w/ decreased ROM ) Complete sys rev & neg: except as marked. Physical Exam Initial Vital Signs Vital Signs (First) Date Time Temp Pulse Resp B/P Pulse Ox O2 Delivery O2 Flow Rate FiO2 05/27/17 23:42 36.4 75 12 151/89 97 Room Air Initial VS: Reviewed, Vital signs normal Head / Eyes: Atraumatic, Normocephalic, PERRL ENT: Mucous membranes moist, Conjunctiva normal Respiratory: Breath sounds normal, Clear to auscultation, No respiratory distress Cardiovascular: Regular rate & rhythm, Heart sounds normal, Intact distal pulses Extremities: Vascular intact, Neuro intact, No swelling, No tenderness Skin: Warm, Dry, No cyanosis Psychiatric: Mood/affect normal, Behavior normal, Normal thought content General/Constitutional: Awake, Alert Neck: Supple, No masses Midline tenderness and L cervical paraspinous musculature Decreased ROM Neurologic: Oriented X3, Speech NL Interpretation & Diagnostics CT C-Spine Interpretation Conclusion: No CT evidence of fracture or dislocation. This report was transmitted to the emergency room at 05/28/17 - 2:40:00 AM PDT. Interpretation / Wet Read by: Interpret - Radiologist Re-Eval/Medical Decision Med Decision/Clinical Course 76-year-old female who has increasing neck pain in the midline into the left side after falling face forward several days ago. CT scan of the neck was negative for acute fracture or dislocation. Re-Evaluation/Progress : Time of Eval: 04:40 Re-Evaluation/Progress Note: Pt rechecked. Informed pt of plan for treatment. Pt understands and agrees with plan for treatment. F/U instructions and RTER warnings given. All questions addressed. Counseled Regarding: Diagnosis, Lab results, Need for follow-up, When/why to return to ED Discharge & Departure Primary Impression: Cervical strain, acute Encounter type: initial encounter Qualified Code: S16.1XXA - Strain of muscle, fascia and tendon at neck level, initial encounter Disposition: Home Discharge Condition All VS Reviewed: Yes Condition: Stable Patient Instructions: Cervical Neck Strain Exercises (GEN), Cervical Strain (ED ) Additional Instructions: The CT scan is normal, showing no evidence of fracture or dislocation. This is a muscle strain, please see instruction sheet. Tylenol as needed for pain. Referrals: Thao Aldridge MD (PCP) ED Scribe Statement Portions of this note were transcribed by Rik Nicole. I, Dr. Kumari personally performed the history, physical exam and medical decision-making; I reviewed and confirmed the accuracy of the information in the transcribed note. Signed by : Margaret Lopez, 05/28/17 and 0226. copies to: Thao Aldridge MD, Howard L MD May 28, 2017 01:44 Rik Nicole May 28, 2017 02:26
[2017-05-28 04:54] VITALS: BP 140/86; PULSE 65; RESP 18; O2SAT 95
--- NOTE | 2017-05-28 08:15 | DRSVH ---
PROCEDURE: CT CERVICAL SPINE WITHOUT CONTRAST ([id number]) INDICATIONS: fall 1 week ago, continued pain TECHNIQUE: Noncontrast 3 mm thick sections acquired from the skull base to the T4 level. Sagittal and coronal r eformats were then constructed. For radiation dose reduction, the following was used: automated exp osure control, adjustment of mA and/or kV according to patient size. COMPARISON: [facility], MR, STROKE PROTOCOL (PNL), 11/19/2009, 16:45. [facility], CR, SPINE CERVICAL 2 OR 3VW, 09/14/2013, 21:05. [facility], CT, CT BRAIN WO CON, , 17:07. FINDINGS: Image quality: Excellent. Bones: There is an ill-defined lucency along the base of the odontoid traversing into the body of th e dens, best seen on the coronal view. He is suspected to be related to prominent vascular groove, as it is partially visualized on the brain MRI dated 11/19/09. Visualized superior ribs are intact. Mult iple degenerative changes are present including prominent disc space narrowing at C5-6 and C6-7. Ther e is trace anterolisthesis of C4 on C5, C7 on T1, retrolisthesis of C5 on C6. Soft tissues: Prevertebral soft tissues are normal in thickness. No paravertebral hematomas. No ap ical pneumothoraces. IMPRESSION: 1. Ill-defined lucency at the base of the d odontoid extending to the base of the dens. This is suspe cted to be related to prominent vascular grooves and appears to have been present on 11/19/09. However, if patient's symptoms persist, MR cervical spine is recommended for additional evaluation Dictated by: Sarah Butcher M.D. on 05/28/2017 at 7:59 Approved by: Sarah Butcher M.D. on 05/28/2017 at 8:14
== END 2017-05-28 04:56 | disposition home or self-care (01) ==
LOC: SED 23:39